=== PATIENT | male | born 1980 | race African-American/Black ===

== ENCOUNTER 2017-07-22 18:44 | Emergency (ER) | payer MEDICAID ==
[~2017-07-22] VITALS: Ht 180.3 cm; Wt 82.0 kg
[2017-07-22] MEDS ORDERED: HYDROCODONE/ACETAMINOPHEN 5/325MG TABLET PO ONE (20:45)
[2017-07-22] MEDS ORDERED: KETOROLAC 60MG/2ML VIAL IM ONE (23:30)
[2017-07-23 10:00] VITALS: BP 121/72
== END 2017-07-23 11:37 | disposition home or self-care (01) ==
LOC: ER 19:22
DX: M54.89 Other dorsalgia (principal); M25.572 Pain in left ankle and joints of left foot; V23.4XXA Motorcycle driver injured in collision with car, pick-up truck or van in traffic accident, initial encounter; Y93.89 Activity, other specified; Y92.488 Other paved roadways as the place of occurrence of the external cause
CPT/HCPCS: 72131; 73610; 96372; 99284; J1885

== ENCOUNTER 2020-07-07 17:32 | Emergency (ER) | payer SELFPAY ==
[~2020-07-07] VITALS: Ht 180.3 cm; Wt 75.0 kg
[2020-07-07] MEDS ORDERED: IBUPROFEN 600MG TABLET PO ONE (18:15)
[2020-07-07 20:15] VITALS: BP 138/78
== END 2020-07-07 20:23 | disposition home or self-care (01) ==
LOC: ER 17:32
DX: S52.122A Displaced fracture of head of left radius, initial encounter for closed fracture (principal); M25.522 Pain in left elbow; W17.2XXA Fall into hole, initial encounter; Y93.55 Activity, bike riding; Y92.9 Unspecified place or not applicable
CPT/HCPCS: 29105; 73080; 99283

== ENCOUNTER 2021-06-05 08:56 | Emergency (ER) | payer MEDICAID ==
[~2021-06-05] VITALS: Ht 188 cm; Wt 81.0 kg
[2021-06-05] MEDS ORDERED: BACITRACIN ZINC OINT UDPKT TOP ONE (11:00)
[2021-06-05] MEDS ORDERED: IBUPROFEN 600MG TABLET PO ONE (11:00)
[2021-06-05 12:21] VITALS: BP 112/69
[2021-06-05] MEDS ORDERED: AMOX-424 MT (12:45)
[2021-06-05] MEDS ORDERED: IBUP-2029 PO (12:45)
[2021-06-05] MEDS ORDERED: SULF1TAB48 PO (12:45)
== END 2021-06-05 13:05 | disposition home or self-care (01) ==
LOC: ER 08:56
DX: S61.431A Puncture wound without foreign body of right hand, initial encounter (principal); L03.113 Cellulitis of right upper limb; X58.XXXA Exposure to other specified factors, initial encounter; Y93.89 Activity, other specified; Y92.89 Other specified places as the place of occurrence of the external cause; Y99.8 Other external cause status
CPT/HCPCS: 73130; 99283

== ENCOUNTER 2021-06-19 10:34 | Emergency (ER) | payer MEDICAID ==
[~2021-06-19] VITALS: Ht 177.8 cm; Wt 68.0 kg
[~2021-06-19 10:34] MED LIST: AMOX-424 MT; IBUP-2029 PO; SULF1TAB48 PO
[2021-06-19 11:00] VITALS: BP 125/93
[2021-06-19] MEDS ORDERED: SULF1TAB48 PO (11:04)
[2021-06-19] MEDS ORDERED: IBUP-2029 PO (11:04)
[2021-06-19] MEDS ORDERED: AMOX-424 MT (11:04)
== END 2021-06-19 11:52 | disposition home or self-care (01) ==
LOC: ER 10:43
DX: S61.411A Laceration without foreign body of right hand, initial encounter (principal); X58.XXXA Exposure to other specified factors, initial encounter; Y93.89 Activity, other specified; Y92.89 Other specified places as the place of occurrence of the external cause; Y99.8 Other external cause status; Z79.899 Other long term (current) drug therapy
CPT/HCPCS: 99283